=== PATIENT | male | born 1970 ===

== ENCOUNTER 2018-04-02 07:59 | Day surgery (SDC) | payer OTHER ==
[2018-03-27 06:18] VITALS: BMI 32.4
[2018-04-02] MEDS ORDERED: Iohexol 350mgl/ml 50 ML ONE (08:27)
[2018-04-02] MEDS ORDERED: Iodixanol 320 MG/ML 200 ML BOTTLE IV ONE (08:27)
[2018-04-02] MEDS ORDERED: Eptifibatide 0.75 mg/ml 0 MG/0 ML BOTTLE IV ONE (08:27)
[2018-04-02] MEDS ORDERED: Eptifibatide 20 mg/10mL Inj IVP ONE (08:27)
[2018-04-02] MEDS ORDERED: Iodixanol 320 MG/ML 100 ML BOTTLE IV ONE (08:27)
[2018-04-02] MEDS ORDERED: Lidocaine 2% Inj (20ml) ONE (08:28)
[2018-04-02] MEDS ORDERED: Nitroglycerin 50mg in D5W 0 MG/0 ML BOTTLE IV ONE (08:28)
[2018-04-02] MEDS ORDERED: Midazolam 2 MG/2 ML VIAL ONE ×2 (08:45→08:56)
[2018-04-02 13:00] VITALS: TEMP 98.4
[2018-04-02 14:51] VITALS: BP 128/75; PULSE 92; RESP 12; O2SAT 96
--- NOTE | 2018-04-02 15:52 | CARDCATH ---
PROCEDURE DATE: 04/02/2018 CARDIAC CATHETERIZATION AND PTCA HISTORY: The patient is a 47-year-old male, who presented with unstable angina to [facility]. He was transferred here after cardiac catheterization with multivessel CAD. Dr. Nagy did the catheterization and sent him here for angioplasty. PROCEDURE: Coronary arteriography, left heart catheterization as well as PTCA and stent of two vessels with drug-eluting stents. The right femoral artery was cannulated with a 6-Danish sheath. There were no complications. I performed moderate sedation, which included the presence of an independent trained observer that monitored the patient's consciousness and physiologic status. After administration of Versed and fentanyl, my intra service time was 30 minutes. The findings on catheterization revealed a right dominant circulation. The RCA revealed an eccentric 80% stenosis in the midportion. The left main artery was unremarkable. The circumflex artery revealed a 99% stenosis in its midportion. The LAD revealed diffuse atherosclerosis without critical lesions. The patient was started on intravenous Angiomax. He was given two boluses of Integrilin. The guiding catheter was placed in the ostium of the left main artery. An 0.014 ATW wire was used to cross the critical lesion. A 2 balloon was utilized to predilate the lesion. This was followed by implantation of 4 x 15 mm drug-eluting stent. Repeat coronary arteriography revealed an excellent result with no residual stenosis and MICHAEL 3 flow. This was then exchanged for a right guider that was placed in the ostium of the RCA. An 0.014 ATW wire was used to cross the lesion. Two stents of 3.5 caliber were placed in the RCA mid lesion. Repeat coronary arteriography after removal of the balloon revealed an excellent result with no residual stenosis and MICHAEL 3 flow. The Angio-Seal was used to close the femoral artery site. The patient tolerated the procedure well. In summary, the procedure was successful for PTCA and stent of 99% circumflex artery stenosis followed by PTCA and stent of an 80% eccentric RCA stenosis, both with drug-eluting stents. Cardiac catheterization reveals two-vessel CAD. PRU was measured and the patient is therapeutic with his Plavix. Given these findings, the patient will be transferred back to [facility] under the care of Dr. Nagy in 4-5 hours. He needs to remain on Plavix for least a year and undergo a strict cardiac risk reduction program, which needs to include cessation of smoking. I have discussed this with the patient in detail. Moo Richey MD
== END 2018-04-02 14:51 | disposition short-term general hospital (02) ==
LOC: CATH 07:59 → ICU 09:56 → CATH 14:51
PROVIDERS: ATTEND Internal Medicine Cardiovascular Disease
DX: I25.110 Atherosclerotic heart disease of native coronary artery with unstable angina pectoris (principal)
CPT/HCPCS: 85576; 93454; 99152; 99153; C1725; C1760; C1769 ×2; C1874 ×3; C1887 ×2; C2629; C9600; C9601; J0360; J0583; J1327; J1644; J2250; J3010; J7030; Q9966; Q9967